=== PATIENT | male | born 1960 | race Caucasian/White ===

== ENCOUNTER → 2021-07-23 14:09 | Outpatient (CLI) | payer MEDICARE, SELFPAY ==
[2021-07-23 17:39] LABS: Absolute Lymphocyte Count 2.06 X10^3/uL (0.83-4.51); Absolute Neutrophil Count 5.8 X10^3/uL (2.0-7.7); Basophil# 0.04 X10^3/uL; Basophil% 0.5 % (0-1); Eosinophil# 0.06 X10^3/uL; Eosinophils% 0.7 % (0-5); Hematocrit 47.8 % (40-54); Hemoglobin 16.1 g/dL (13.0-16.5); Lymphocyte # 2.06 X10^3/ul (0.83-4.51); Lymphocyte % 24.1 % (19-41); Mean Corp Hgb Conc 33.7 g/dL (32-36); Mean Corpuscular Hgb 31.6 pg (27.0-32.0); Mean Corpuscular Volume 93.7 fL (80-94); Mean Platelet Vol. 11.2 fl (6.2-12.0); Monocyte# 0.52 X10^3/uL; Monocyte% 6.1 % (0-10); NRBC Flagged by Analyzer 0 % (0-5); Neutrophil # 5.83 X10^3/uL (2.7-7.7); Neutrophil % 68.1 % (47-70); Platelet Count 224 K/mm3 (150-450); RBC Distribution Width CV 12.2 % (11.6-14.6); RBC Distribution Width SD 42.1 fl (35.1-43.9); White Blood Count 8.6 K/mm3 (4.4-11.0)
[2021-07-23 17:48] LABS: Erythrocyte Sedimentation Rate 4 mm/hr (0-20)
[2021-07-23 18:22] LABS: ALB/GLOB Ratio 1.2 RATIO (0.9-2.4); AST(SGOT) 40 U/L (15-37); Alanine Aminotransfer ALT/SGPT 78 U/L (16-61); Albumin, Serum 4.4 g/dL (3.2-5.0); Alkaline Phosphatase 72 U/L (45-117); Anion Gap 8 (5-15); BUN 12 mg/dL (7-18); CRP < 2.90 mg/L (0.0-3.0); Calcium,Total 9.3 mg/dL (8.5-10.1); Chloride 105 mmol/L (98-107); Creatinine, Serum 0.86 mg/dL (0.70-1.30); EST Glomerular Filtration Rate 96 mL/min (>60); Est Glom Filt Rate - Afr Amer 117 mL/min (>60); Globulin 3.7 g/dL (2.2-4.2); Glucose 94 mg/dL (74-106); Potassium 3.8 mmol/L (3.5-5.1); Protein, Total 8.1 g/dL (6.4-8.2); Rheumatoid Factor < 10.0 IU/mL (<15); Sodium Level 139 mmol/L (136-145)
[2021-07-24 10:12] LABS: Hepatitis B Surface Antibody Non-Reactive; Hepatitis B Surface Antigen Non-Reactive (Nonreactive); Hepatitis C Antibody Non-Reactive (Nonreactive)
[2021-07-27 02:06] LABS: QNTFERON TB Mitogen Value > 10.00 IU/mL (.); QNTFERON TB Nil Value 0.03 IU/mL (.); QNTFERON TB1+ Ag Value 0.03 IU/mL (.); QNTFERON TB2+ Ag Value 0.01 IU/mL (.); Red Blood Cell Count Test/G6PD 5.09 x10E6/uL (4.14-5.80)
[2021-07-27 07:48] LABS: CCP IgG Antibodies 6 units (0-19); G6PD Quant Test 302 (127-427); QNTIFERON TB Positive Criteria Negative (Negative)
== END ==
PROVIDERS: PCP Family Medicine; Referring Provider Internal Medicine Rheumatology; Visit Provider Internal Medicine Rheumatology
DX: M06.09 Rheumatoid arthritis without rheumatoid factor, multiple sites (principal); K21.00 Gastro-esophageal reflux disease with esophagitis, without bleeding; J45.909 Unspecified asthma, uncomplicated; E78.5 Hyperlipidemia, unspecified; M18.12 Unilateral primary osteoarthritis of first carpometacarpal joint, left hand; Z86.73 Personal history of transient ischemic attack (TIA), and cerebral infarction without residual deficits; Z79.899 Other long term (current) drug therapy
CPT/HCPCS: 36415; 80053; 82955; 85025; 85652; 86140; 86200; 86431; 86480; 86706; 86803; 87340

== ENCOUNTER 2023-10-29 08:35 | Day surgery (SDC) | payer MEDICARE, SELFPAY ==
[2023-10-29 08:57] VITALS: BP 143/78; PULSE 92; RESP 16; TEMP 36.4; O2SAT 100; BMI 27.3
[2023-10-29] MEDS: Lactated Ringers 1,000 ML 15 ML IV (09:03)
--- NOTE | 2023-10-29 09:45 | IMM_PTH ---
PATIENT: SKY CARSON LOC: EN U#:[id number] AGE/SX: 63/M ROOM: RE10/29/[address]: Dr. Rajani Martin MD : 1960 BED: DIS: 10/29/2023 SPEC #: [id number] RECD: 10/29/23 14:27 STATUS: LUTHER REQ #: [id number] JENNI: 10/29/23 09:[address]: Rajani Martin DEPT: IMMUNOHISTOCHEMISTRY RECD BY: Pankaj Medina ENTERED: 10/29/23 14:29 SP TYPE: IMMUNO OTHR DR: Dr. Charles Watts MD Tissues: B - Stomach, NOS Procedures: H Pylori (initial) PHYSICIAN & INSTITUTION [place] [id number] SPECIMEN INFORMATION: Tissue Source: Gastric body, biopsy; Clinical Info: Blood in stool, Right sided abdominal pain, Nausea Specimen Number: [id number] CPT code: 92665 METHODOLOGY: Deparaffinized sections of prefer/formalin-fixed tissue or PAP/DQ stained slides are incubated with monoclonal/polyclonal antibodies/oligonucleotide probes. Localization is made via biotin free immunoperoxidase method. Appropriate controls are performed and reacted as expected. Results on target cell population are indicated in the following table: RESULTS: ANTIBODY / CLONE RESULT H Pylori (polyclonal) negative These tests were developed and their performance characteristics determined by [facility]. They may not have been cleared or approved by the U.S. Food and Drug Administration. The FDA has determined that such clearance or approval is not necessary. The above immunohistochemical/dualISH markers are ordered and reviewed by the Pathologist. INTERPRETATION: Gastric body, biopsy: Negative for Helicobacter pylori organisms. SJ:ivette 11/02/2023
--- NOTE | 2023-10-29 09:45 | COLBX_PTH ---
PATIENT: SKY CARSON LOC: EN U#:[id number] AGE/SX: 63/M ROOM: RE10/29/[address]: Dr. Rajani Martin MD : 1960 BED: DIS: 10/29/2023 SPEC #: [id number] RECD: 10/29/23 11:51 STATUS: LUTHER STACIE #: [id number] JENNI: 10/29/23 09:[address]: Rajani Martin DEPT: SURGICAL PATHOLOGY RECD BY: Georgiana Molina ENTERED: 10/29/23 11:51 SP TYPE: COLON BX OTHR DR: Dr. Charles Watts MD Tissues: A - Pylorus B - Gastric mucous membrane C - Esophageal mucous membrane D - Rectum, NOS Procedures: Special Stain Group II Surgery Specimen Level IV Alcian Blue/PAS (control) HEADER OPERATION: Colonoscopy, EGD PRE-OP DIAGNOSIS: Blood in stool, Right sided abdominal pain, Nausea TISSUE SUBMITTED: A- Pre-pyloric biopsy, abnormal mucosa, B- Gastric body ulcer biopsy, C- Gastroesophageal junction biopsy, D-Rectal polyp MICROSCOPIC DIAGNOSIS A. Pre-pyloric biopsy; Mild gastritis and focal intestinal mucosa (goblet cell metaplasia). See microscopic description and comment. B. Gastric body ulcer, biopsy; A fragment of gastric mucosa is with superficial erosion and acute and chronic inflammation. See comment. C. Gastroesophageal junction, biopsy; A fragment of gastroesophageal mucosa with chronic inflammation. Intestinal metaplasia (goblet cell metaplasia) not identified. See comment. D. Rectal polyp, biopsy; Fragments of serrated adenoma (mixed tubular adenoma and hyperplastic polyp). SJ/mr 11/01/2023 COMMENT A. Alcian blue/PAS stain with matched control is used in the evaluation of the specimen. MICROSCOPIC DESCRIPTION Slides are reviewed. A. The specimen shows fragments of gastric mucosa with chronic inflammatory cell infiltrates in the lamina propria consisting of lymphocytes and plasma cells, consistent with mild chronic gastritis. Focal intestinal mucosa (goblet cell metaplasia) is also noted. GROSS DESCRIPTION A. Received in fixative is one container labeled with the patient's name and designated Pre-pyloric biopsy, abnormal mucosa. The specimen consists of one irregular fragment of light ballard soft tissue that measures 0.3 x 0.3 x 0.1 cm. The specimen is totally submitted in one cassette. B. Received in fixative is one container labeled with the patient's name and designated Gastric body ulcer biopsy. The specimen consists of one irregular fragment of light ballard soft tissue that measures 0.4 x 0.3 x 0.1 cm. The specimen is totally submitted in one cassette. C. Received in fixative is one container labeled with the patient's name and designated GE junction biopsy. The specimen consists of one irregular fragment of light ballard soft tissue that measures 0.4 x 0.2 x 0.1 cm. The specimen is totally submitted in one cassette. D. Received in fixative is one container labeled with the patient's name and designated Rectal polyp. The specimen consists of multiple irregular fragments of light ballard soft tissue that in aggregate measure 0.8 x 0.5 x 0.1 cm. The specimen is totally submitted in one cassette. SHANNON/ 10/29/23 TC:1 CPT: 94538o1, 30761d5
--- NOTE | 2023-10-29 09:50 | PCM.HP.BLA ---
History and Physical Date of Admission: 10/29/23 Date of Service: 10/26/23 MR#: [id number] Acct: [id number] Name: SKY CARSON Rep #: [id number] : 1960 Provider: Dr. Rajani Martin MD Age/Sex: 63/M Location: [facility] Status: Signed Intake Vital Signs 10/25/2408:13 Height 5 ft 2 in Weight: 158 lb 8 oz BMI 29.0 BP 132/85 H Blood Pressure Location Rt brachial Position Sitting Respiration 18 Pulse 77 Pulse Source Monitor Temp 97.6 F L Temp Source Temporal Pulse Oximetry (%) 98 Oxygen Delivery Method room air Intake Visit Reasons: BLOOD IN STOOL Chief Complaint: blood in stool Is patient in pain?: Yes (RUQ pain) Allergies No Known Allergies Allergy (Unverified 10/26/23 09:15) Medications duloxetine 60 mg capsule,delayed release 60 mg PO QHS 10/26/23 [History Confirmed 10/26/23] fluticasone propionate 115 mcg-salmeterol 21 mcg/actuation HFA inhaler (Advair HFA) inhalation 10/26/23 [History Confirmed 10/26/23] hydroxychloroquine 200 mg tablet 200 mg PO BID 10/26/23 [History Confirmed 10/26/23] ketoconazole 2 % topical cream 1 applic topical 10/26/23 [History Confirmed 10/26/23] meclizine 25 mg tablet 25 mg PO TID PRN 10/26/23 [History Confirmed 10/26/23] meloxicam 15 mg tablet 15 mg PO QDAY 10/26/23 [History Confirmed 10/26/23] montelukast 10 mg tablet 10 mg PO QDAY 10/26/23 [History Confirmed 10/26/23] omeprazole 40 mg capsule,delayed release 40 mg PO QDAY #30 caps 10/26/23 [Rx Confirmed 10/26/23] prednisone 5 mg tablet 5 mg PO QDAY 10/26/23 [History Confirmed 10/26/23] terbinafine HCl 250 mg tablet 250 mg PO QDAY 10/26/23 [History Confirmed 10/26/23] tramadol 50 mg tablet 50 mg PO TID PRN 10/26/23 [History Confirmed 10/26/23] PFSH Medical History (Updated 10/26/23 @ 10:[address] Rajani Martin MD) Constipation Diarrhea Hemorrhoids Surgical History (Updated 10/26/23 @ 09:13 by Arlen Sainz LPN) Previous back surgery S/P sinus surgery S/P total knee arthroplasty Family History (Updated 10/26/23 @ 09:13 by Arlen Sainz LPN) Grandmother Cancer DiabetesMother Diabetes Social History (Updated 10/26/23 @ 09:13 by Arlen Sainz LPN) Smoking Status: Never smoker alcohol intake: never substance use type: does not use HPI HPI HPI: 63-year-old male presents due to bright red blood per rectum. Patient states that on September 02, 2023 he had right back pain and right upper quadrant pain along with a large amount then normal of bright red blood per rectum on the tissue when he wiped. Patient states since then he has only a small amount when he wipes he does have known hemorrhoids. States he could have it every 2 days or once a week as far as bright red blood per rectum. Patient does take Ex-Lax due to constipation. Patient has had diarrhea 3-4 times in the last month as well. Patient also complains of nausea daily happens more often before he eats. Did previously have history of reflux was on Prilosec back when he had his last scope in 2013. An EGD and colonoscopy at that time. Colonoscopy was negative per patient. Patient states that he did also do a Cologuard a year ago which was negative. Patient plans of right right-sided abdominal pain daily denies any increased pain after eating in this area. Patient states if it presses up against the counter can be more painful. Patient does have history of back surgery in 2016 patient is also had issues with slipped disks since then he has seen the chiropractor for. ROS General General: Yes fatigue; No weight change, appetite, colon cancer, breast cancer or weakness HEENT HEENT: Yes eye injury; No difficulty swallowing, eye surgery, swollen glands or hoarseness Additional Details: piece of manjarrez in eye Endo Endocrine: No thyroid disease, diabetes mellitus, thyroid cancer, Hair loss, heat intolerance or cold intolerance Skin Skin: Yes changing moles; No rash Musc Musculoskeletal: Yes back problems, arthritis and rheumatoid arthritis; No gout or joint pain Cardio Cardiovascular: No murmur, pacemaker, heart disease, atrial fibrillation, high blood pressure, heart attack, heart stent, palpitations, shortness of breat with exertion or chest pain Psych Psychiatric: Yes depression and anxiety; No hearing voices Resp Respiratory: Yes shortness of breath, No sleep apnea, No cough, No COPD, Yes asthma, No emphysema and No wheezing Gastro Gastrointestinal: Yes abdominal pain, Yes nausea or vomiting, Yes diarrhea, Yes constipation, No blood in stool, No acid reflux, Yes hemorrhoids, No ulcers, No gallbladder problem and No black,tarry stools Karlos Hematologic: No blood thinners, No blood disorders, No bleeding, No anemia and No blood clots Neuro Neurologic: No numbness, No tingling and No weakness Exam Const General: cooperative, healthy appearing, comfortable and no acute distress [facility] Head: normocephalic and atraumatic Neck Neck: supple Resp Effort & Inspection: normal respiratory effort Cardio Rate: regular rate GI Inspection: non-distended Palpation: soft, hernia umbilical (Reducible) and tender in the RLQ (And right mid abdomen); with no rebound tenderness (No guarding) Skin General: no rashes or lesions noted Neuro General: CN's II-XI intact bilaterally Extrem General: normal to inspection Psych Mental Status: mental status grossly normal Attitude: cooperative Assessment and Plan Assessment and Plan (1) Blood in stool, [place]: Status: Acute (2) Right sided abdominal pain: Status: Acute (3) Nausea: Status: Acute Medications: New omeprazole swallow whole; do not crush, chew, dissolve, cut, break 40 mg PO QDAY 30 caps 3RF Plan I have discussed the above with the patient. I have offered the patient esophagogastroduodenoscopy and colonoscopy for evaluation. I have explained the risks/benefits of the procedure and described the procedure. I have discussed the risks with the patient, including but not limited to: infection, bleeding, perforation of the GI tract requiring emergency surgery, inability to complete the procedure, injury to any internal organs, complications of anesthesia, etc. - the patient understands and agrees to proceed. I have answered all the patient's questions to the patient's satisfaction and the patient has no further questions. The patient has been given instructions for the colon cleansing preparation. 1 day of clears, MiraLAX Dulcolax split prep. Rajani Martin M.D. Pager: [phone] [facility] [address] [place] [address], [facility], [address] [place] [address] Office: [phone] Coding Level of Care Code Off vis,new,level 3 Diagnoses Blood in stool, [place] K92.1 Right sided abdominal pain R10.9 Nausea R11.0 10/26/23 1005 <Electronically signed by Rajani Martin MD> Date Rajani Martin MD
[2023-10-29 10:35] VITALS: BP 106/70; BP 143/78; PULSE 78; RESP 16; TEMP 36.9; O2SAT 99
--- NOTE | 2023-10-29 10:35 | OP.EGD_ITS ---
Patient Name: Henry Salter Procedure Date: 10/29/2023 9:59 AM Date of : 1960 Age: 63 Procedure: Upper GI endoscopy Indications: Heartburn Providers: Rajani Martin MD Medicines: Monitored Anesthesia Care Patient Profile: This is a 63 year old male. Complications: No immediate complications. Procedure: Pre-Anesthesia Assessment: - Prior to the procedure, a History and Physical was performed, and patient medications and allergies were reviewed. The patient's tolerance of previous anesthesia was also reviewed. The risks and benefits of the procedure and the sedation options and risks were discussed with the patient. All questions were answered, and informed consent was obtained. Prior Anticoagulants: The patient has taken no anticoagulant or antiplatelet agents. ASA Grade Assessment: Per anesthesia. After reviewing the risks and benefits, the patient was deemed in satisfactory condition to undergo the procedure. After obtaining informed consent, the endoscope was passed under direct vision. Throughout the procedure, the patient's blood pressure, pulse, and oxygen saturations were monitored continuously. The Colonoscope was introduced through the mouth, and advanced to the second part of duodenum. The upper GI endoscopy was accomplished without difficulty. The patient tolerated the procedure well. Scope In: 10:06:11 AM Scope Out: 10:12:32 AM Total Procedure Duration Time 0 hours 6 minutes 21 seconds Findings: Two tongues of salmon-colored mucosa were present at 35 cm. No other visible abnormalities were present. Biopsies were taken with a cold forceps for histology. Localized moderate mucosal changes characterized by inflammation were found in the prepyloric region of the stomach. Biopsies were taken with a cold forceps for histology. Biopsies were taken with a cold forceps for Helicobacter pylori cultures. One non-bleeding superficial gastric ulcer with no stigmata of bleeding was found in the gastric body. The lesion was 4 mm in largest dimension. Biopsies were taken with a cold forceps for histology. Biopsies were taken with a cold forceps for Helicobacter pylori cultures. The cardia and gastric fundus were normal on retroflexion. The examined duodenum was normal. Impression: - Fork-colored mucosa suspicious for short-segment Scruggs's esophagus. Biopsied. - Inflamed mucosa in the prepyloric region of the stomach. Biopsied. - Non-bleeding gastric ulcer with no stigmata of bleeding. Biopsied. - Normal examined duodenum. Recommendation: - Await pathology results. - Discharge patient to home. - Resume previous diet. - Continue present medications. - Use sucralfate tablets 1 gram PO QID for 2 weeks. Procedure Code(s): --- Professional --- 55496, Esophagogastroduodenoscopy, flexible, transoral; with biopsy, single or multiple Diagnosis Code(s): --- Professional --- K22.89, Other specified disease of esophagus K29.70, Gastritis, unspecified, without bleeding K25.9, Gastric ulcer, unspecified as acute or chronic, without hemorrhage or perforation R12, Heartburn CPT copyright 2021 [employer]. All rights reserved. The codes documented in this report are preliminary and upon computer language coder review may be revised to meet current compliance requirements. MD Rajani Ledezma MD 10/29/2023 10:35:17 AM This report has been signed electronically. Number of Addenda: 0 Note Initiated On: 10/29/2023 9:59 AM
--- NOTE | 2023-10-29 10:36 | OP.CCLET_ITS ---
10/29/2023 Charles Watts Re : Upper GI endoscopy procedure for Henry Watts This procedure was performed on Sunday, October 29, 2023. My impressions and recommendations are as follows: Impressions : - Duke-colored mucosa suspicious for short-segment Scruggs's esophagus. Biopsied. - Inflamed mucosa in the prepyloric region of the stomach. Biopsied. - Non-bleeding gastric ulcer with no stigmata of bleeding. Biopsied. - Normal examined duodenum. Recommendations : - Await pathology results. - Discharge patient to home. - Resume previous diet. - Continue present medications. - Use sucralfate tablets 1 gram PO QID for 2 weeks. My findings are described in the full procedure note, which is enclosed. If I can be of further assistance, please feel free to contact me at Doctor phone number(s): , Work: . Sincerely, MD Rajani Ledezma MD 10/29/2023 10:35:17 AM This report has been signed electronically.
[2023-10-29 10:40] VITALS: BP 109/72; BP 143/78; PULSE 76; RESP 16; O2SAT 100
--- NOTE | 2023-10-29 10:40 | OP.COLON_ITS ---
Patient Name: Henry Salter Procedure Date: 10/29/2023 10:12 AM Date of : 1960 Age: 63 Procedure: Colonoscopy Indications: Rectal bleeding Providers: Rajani Martin MD Medicines: Monitored Anesthesia Care Patient Profile: This is a 63 year old male. Last Colonoscopy: 2013. Complications: No immediate complications. Procedure: Pre-Anesthesia Assessment: - Prior to the procedure, a History and Physical was performed, and patient medications and allergies were reviewed. The patient's tolerance of previous anesthesia was also reviewed. The risks and benefits of the procedure and the sedation options and risks were discussed with the patient. All questions were answered, and informed consent was obtained. Prior Anticoagulants: The patient has taken no anticoagulant or antiplatelet agents. ASA Grade Assessment: Per anesthesia. After reviewing the risks and benefits, the patient was deemed in satisfactory condition to undergo the procedure. After I obtained informed consent, the scope was passed under direct vision. Throughout the procedure, the patient's blood pressure, pulse, and oxygen saturations were monitored continuously. The Colonoscope was introduced through the anus and advanced to the cecum, identified by the appendiceal orifice, ileocecal valve and palpation. The colonoscopy was performed without difficulty. The patient tolerated the procedure well. The quality of the bowel preparation was good. Scope In: 10:13:48 AM Scope Withdrawal Time 0 hours 11 minutes 9 seconds Scope Out: 10:29:16 AM Total Procedure Duration Time 0 hours 15 minutes 28 seconds Findings: Hemorrhoids were found on perianal exam. Non-bleeding internal hemorrhoids were found. The hemorrhoids were Grade II (internal hemorrhoids that prolapse but reduce spontaneously). A less than 5 mm polyp was found in the rectum. The polyp was sessile. The polyp was removed with a cold biopsy forceps. Resection and retrieval were complete. The exam was otherwise without abnormality. Impression: - Hemorrhoids found on perianal exam. - Non-bleeding internal hemorrhoids. - One less than 5 mm polyp in the rectum, removed with a cold biopsy forceps. Resected and retrieved. - The examination was otherwise normal. Recommendation: - Discharge patient to home. - Resume previous diet. - Continue present medications. - Await pathology results. - Repeat colonoscopy in 5 years for surveillance based on pathology results. Procedure Code(s): --- Professional --- 55507, Colonoscopy, flexible; with biopsy, single or multiple Diagnosis Code(s): --- Professional --- K64.1, Second degree hemorrhoids D12.8, Benign neoplasm of rectum K62.5, Hemorrhage of anus and rectum CPT copyright 2021 [employer]. All rights reserved. The codes documented in this report are preliminary and upon electronic health records specialist review may be revised to meet current compliance requirements. MD Rajani Ledezma MD 10/29/2023 10:40:25 AM This report has been signed electronically. Number of Addenda: 0 Note Initiated On: 10/29/2023 10:12 AM
--- NOTE | 2023-10-29 10:41 | OP.CCLET_ITS ---
10/29/2023 Charles Watts Re : Colonoscopy procedure for Henry Watts This procedure was performed on Sunday, October 29, 2023. My impressions and recommendations are as follows: Impressions : - Hemorrhoids found on perianal exam. - Non-bleeding internal hemorrhoids. - One less than 5 mm polyp in the rectum, removed with a cold biopsy forceps. Resected and retrieved. - The examination was otherwise normal. Recommendations : - Discharge patient to home. - Resume previous diet. - Continue present medications. - Await pathology results. - Repeat colonoscopy in 5 years for surveillance based on pathology results. My findings are described in the full procedure note, which is enclosed. If I can be of further assistance, please feel free to contact me at Doctor phone number(s): , Work: . Sincerely, MD Rajani Ledezma MD 10/29/2023 10:40:25 AM This report has been signed electronically.
[2023-10-29 10:45] VITALS: BP 115/74; BP 143/78; PULSE 75; RESP 16; O2SAT 100
[2023-10-29 10:50] VITALS: BP 118/80; BP 143/78; PULSE 77; RESP 16; TEMP 36.8; O2SAT 99
[2023-10-29 10:59] VITALS: BP 143/78
== END 2023-10-29 11:17 | disposition home or self-care (01) ==
LOC: EN 08:36 → AC 08:37
PROVIDERS: PCP Family Medicine; Referring Provider Family Medicine; Visit Provider Surgery
PROC: 0DJD8ZZ Inspection of Lower Intestinal Tract, Via Natural or Artificial Opening Endoscopic (ICD-10-PCS; CPT 45378; principal; 2023-10-29 09:40)
DX: K62.5 Hemorrhage of anus and rectum (principal); K25.3 Acute gastric ulcer without hemorrhage or perforation; K25.7 Chronic gastric ulcer without hemorrhage or perforation; K22.70 Barrett's esophagus without dysplasia; K64.1 Second degree hemorrhoids; K62.1 Rectal polyp; R12 Heartburn; Z79.899 Other long term (current) drug therapy
CPT/HCPCS: 43239; 45380; 88305; 88313; 88342; J7120; J2405

== ENCOUNTER → 2025-07-25 | Outpatient (CLI) | payer MEDICARE, SELFPAY ==
--- NOTE | 2025-07-25 08:19 | CT_ITS ---
PROCEDURE: EXTREMITY LOWER WITHOUT CONTRA 07/25/2025 REASON FOR EXAM: KNEE PAIN TECHNIQUE: Procedure Code: CTELWO Modality: CT Procedure: VALE noncontrasted CT of the right knee to include the right hip and right ankle. Coronal and Sagittal reconstruction series were provided. One or more dose reduction techniques were used (e.g., Automated exposure control, adjustment of the mA and/or kV according to patient size, use of iterative reconstruction technique). RADIATION DOSE SUMMARY: DLP: 1103.49 mGy-cm. COMPARISON: None provided. FINDINGS: A relatively small fat containing right inguinal hernia is noted. The right hip joint demonstrates mild degenerative changes only. No evidence of femoral head osteonecrosis. No fracture or dislocation is seen. The right knee demonstrates tricompartmental degenerative changes medial and lateral meniscal chondrocalcinosis. Moderately severe medial joint space narrowing is noted. The patellofemoral articulation demonstrates wytm-dx-jamwflry joint narrowing. No fracture or dislocation is seen. Also of the right knee, a small joint effusion is seen, with suprapatellar intra-articular loose body noted. Superior to the tibial tubercle and deep to the patellar tendon is seen an area of ossification, likely representing heterotopic ossification or loose intra-articular body. Images of the right ankle show no significant arthritic process or other finding. CT/Extremity Lower without Contra IMPRESSION: 1. Significant degenerative changes and other findings of the right knee, as de scribed. No acute process is seen. 2. Relatively small fat containing right inguinal hernia. Reading Location: [id number]
--- NOTE | 2025-07-25 08:19 | EKG12_ITS ---
Test Reason : PRE OP Blood Pressure : */* mmHG Vent. Rate : 81 BPM Atrial Rate : 81 BPM P-R Int : 148 ms QRS Dur : 84 ms QT Int : 370 ms P-R-T Axes : 53 39 59 degrees QTcB Int : 429 ms Normal sinus rhythm Normal ECG Confirmed by Julito Quiñonez ([id number]), newspaper or periodical editor JEANINE LOWRY ([id number]) on 07/26/2025 1:58:03 PM Referred By: Ismael Sahu Confirmed By: Julito Quiñonez
[2025-07-25 09:50] LABS: Hematocrit 46.4 % (40-54); Hemoglobin 15.4 g/dL (13.0-16.5); Immature Granulocytes Count 0.050 X10^3/uL (0.0-0.0); Mean Corp Hgb Conc 33.2 g/dL (32-36); Mean Corpuscular Volume 91.7 fL (80-94); Mean Platelet Vol. 11.1 fl (6.2-12.0); NRBC Flagged by Analyzer 0 % (0-5); Platelet Count 223 K/mm3 (150-450); RBC Distribution Width CV 12.4 % (11.6-14.6); RBC Distribution Width SD 41.2 fl (35.1-43.9); Red Blood Count 5.06 M/mm3 (4.6-6.2); White Blood Count 8.5 K/mm3 (4.4-11.0)
[2025-07-25 10:21] LABS: Albumin, Serum 4.4 g/dL (3.4-4.8); Anion Gap 11 (5-15); BUN 15 mg/dL (4-19); BUN/Creat Ratio 15.9 RATIO (10-20); Calcium,Total 9.4 mg/dL (7.6-11.0); Carbon Dioxide 26.8 mmol/L (21.0-32.0); Chloride 106 mmol/L (98-108); Glucose 87 mg/dL (70-99); Potassium 4.0 mmol/L (3.3-5.1)
== END | disposition home or self-care (01) ==
LOC: CT 08:13
PROVIDERS: PCP Family Medicine; Referring Provider Specialist; Visit Provider Specialist
DX: Z01.810 Encounter for preprocedural cardiovascular examination (principal); M06.9 Rheumatoid arthritis, unspecified; M21.751 Unequal limb length (acquired), right femur; M21.161 Varus deformity, not elsewhere classified, right knee; K21.9 Gastro-esophageal reflux disease without esophagitis; J45.909 Unspecified asthma, uncomplicated; Z01.818 Encounter for other preprocedural examination
CPT/HCPCS: 36415; 73700; 80048; 82040; 85025; 87081; 93005